=== PATIENT | male | born 1980 | race African-American/Black ===

== ENCOUNTER 2021-07-06 20:54 | Emergency (ER) | payer OTHER, BC ==
[~2021-07-06] VITALS: Ht 177.8 cm; Wt 107.5 kg
[2021-07-06] MEDS ORDERED: KETOROLAC 60MG/2ML VIAL IM ONE (23:15)
[2021-07-06] MEDS ORDERED: IBUP-2028 MT (23:28)
[2021-07-06 23:56] VITALS: BP 134/83
== END 2021-07-07 00:01 | disposition home or self-care (01) ==
LOC: ER 20:54
DX: M54.9 Dorsalgia, unspecified (principal)
CPT/HCPCS: 72100; 96372; 99283; J1885